=== PATIENT | male | born 1985 | race Two or more races ===

== ENCOUNTER 2017-03-09 14:01 | Emergency (ER) | payer MEDICAID ==
[2017-03-09 14:12] VITALS: BMI 18.1
[2017-03-09 14:16] VITALS: BP 102/68; RESP 18; TEMP 99.4; O2SAT 99
--- NOTE | 2017-03-09 14:24 | C.PDOC ---
History Of Present Illness 31 year old patient presents to the ED complaining of throat pain, fever, chills , and difficulty swallowing for the past 3 days. Patient denies cough, runny nose, ear pain, body aches, abdominal pain, N/V/D. Time Seen by Provider: 03/09/17 14:08 Chief Complaint (Nursing): ENT Problem History Per: Patient History/Exam Limitations: no limitations Onset/Duration Of Symptoms: Days (3) Current Symptoms Are (Timing): Still Present Quality Of Symptoms: Painful Severity: Mild Past Medical History Reviewed: Historical Data, Nursing Documentation, Vital Signs Vital Signs: Last Vital Signs Temp 99.4 F 03/09/17 14:13 Pulse 85 03/09/17 14:39 Resp 18 03/09/17 14:13 BP 102/68 03/09/17 14:13 Pulse Ox 99 03/09/17 16:05 - Medical History PMH: No Chronic Diseases Family History: States: No Known Family Hx - Social History Hx Tobacco Use: No Hx Alcohol Use: Yes Hx Substance Use: Yes - Immunization History Hx Tetanus Toxoid Vaccination: No Hx Influenza Vaccination: No Hx Pneumococcal Vaccination: No Review Of Systems Except As Marked, All Systems Reviewed And Found Negative. Constitutional: Positive for: Fever, Chills. Negative for: Other (body aches) ENT: Positive for: Throat Pain, Other (pain with swallowing). Negative for: Ear Pain, Nose Discharge Cardiovascular: Negative for: Chest Pain, Palpitations Respiratory: Negative for: Cough, Shortness of Breath Gastrointestinal: Negative for: Nausea, Vomiting, Abdominal Pain, Diarrhea Physical Exam - Physical Exam Appears: Well, Non-toxic, No Acute Distress Skin: Warm, Dry, No Rash Head: Normacephalic Eye(s): bilateral: Normal Inspection Ear(s): Bilateral: Normal Nose: Normal Oral Mucosa: Moist Throat: Erythema, Exudate, No Drooling, Other (tonsillar swelling, uvula midline and normal in appearance ) Neck: Normal, Normal ROM, Supple Lymphatic: No Adenopathy Chest: Symmetrical Cardiovascular: Rhythm Regular Respiratory: Normal Breath Sounds, No Rales, No Rhonchi, No Wheezing, Other ( speaking in complete sentences) Neurological/Psych: Oriented x3 ED Course And Treatment O2 Sat by Pulse Oximetry: 99 (room air) Pulse Ox Interpretation: Normal Progress Note: Patient given PO Amoxicillin and Naproxen in ED, as well as Rx for same. He was instructed to follow up with PMD/clinic in 1-2 days, and understands he should return to ED if symptoms worsen. Disposition Counseled Patient/Family Regarding: Diagnosis - Disposition Referrals: Dahiana Akbar MD [Primary Care Provider] - Disposition: HOME/ ROUTINE Disposition Time: 14:40 Condition: STABLE Additional Instructions: FOLLOW UP WITH YOUR DOCTOR IN 1-2 DAYS USE MEDICATIONS DIRECTED SALT WATER GARGLES MULTIPLE TIMES DAILY RETURN TO ER IF SYMPTOMS WORSEN Prescriptions: Amoxicillin [Amoxil 500 mg Cap] 500 mg PO BID #14 cap Naproxen [Naprosyn Tab] 375 mg PO BID PRN #15 tab PRN Reason: pain Instructions: Pharyngitis (ED) Print Language: MAURITIAN - Clinical Impression Clinical Impression: Pharyngitis - Scribe Statement The provider has reviewed the documentation as recorded by the Scribe Sepideh Maddox Provider Attestation: All medical record entries made by the Scribe were at my direction and personally dictated by me. I have reviewed the chart and agree that the record accurately reflects my personal performance of the history, physical exam, medical decision making, and the department course for this patient. I have also personally directed, reviewed, and agree with the discharge instructions and disposition.
[2017-03-09] MEDS ORDERED: Naproxen 550 mg Tab PO STA (14:29)
[2017-03-09] MEDS ORDERED: Naproxen 550 mg Tab PO ONE (14:32)
[2017-03-09 14:40] VITALS: PULSE 85
== END 2017-03-09 14:40 | disposition home or self-care (01) ==
LOC: C.ER 14:01 → SUPCPDRO 14:01 → C.ER 14:40
DX: J02.9 Acute pharyngitis, unspecified (principal)

== ENCOUNTER 2017-05-25 18:20 | Emergency (ER) | payer MEDICAID ==
[2017-05-25 18:20] VITALS: BMI 18.1
--- NOTE | 2017-05-25 19:43 | C.PDOC ---
History Of Present Illness 31 y/o male presents to the ED with complaints of left rib pain. Patient states he was boxing 2 days ago and got hit in the chest and has had pain since. Pain with deep breathing. No bruising, SOB, vomiting or any other complaints. Time Seen by Provider: 05/25/17 18:37 Chief Complaint (Nursing): Rib Injury History Per: Patient History/Exam Limitations: no limitations Onset/Duration Of Symptoms: Days Current Symptoms Are (Timing): Still Present Severity: Moderate Recent travel outside of the [place]: No Past Medical History Reviewed: Historical Data, Nursing Documentation, Vital Signs Vital Signs: Last Vital Signs Temp 98.3 F 05/25/17 18:27 Pulse 69 05/25/17 18:27 Resp 18 05/25/17 18:27 BP 115/76 05/25/17 18:27 Pulse Ox 99 05/25/17 20:16 - Medical History PMH: Asthma Surgical History: No Surg Hx Family History: States: Unknown Family Hx - Social History Hx Tobacco Use: No Hx Alcohol Use: Yes Hx Substance Use: Yes - Immunization History Hx Tetanus Toxoid Vaccination: No Hx Influenza Vaccination: No Hx Pneumococcal Vaccination: No Review Of Systems Cardiovascular: Negative for: Chest Pain Respiratory: Negative for: Shortness of Breath Gastrointestinal: Negative for: Vomiting Musculoskeletal: Positive for: Other (left rib pain) Physical Exam - Physical Exam Appears: Non-toxic, No Acute Distress Skin: Warm, Dry, No Rash Head: Atraumatic, Normacephalic Eye(s): bilateral: Normal Inspection Neck: Normal, Normal ROM, Supple Chest: Symmetrical, No Deformity, Tenderness (left anterior chest wall along 5th - 7th ribs), No Ecchymosis Cardiovascular: Rhythm Regular, No Murmur Respiratory: Normal Breath Sounds, No Rales, No Rhonchi, No Wheezing Gastrointestinal/Abdominal: Normal Exam, Soft, No Tenderness Extremity: Bilateral: Atraumatic, Normal ROM Neurological/Psych: Oriented x3, Normal Speech Gait: Steady ED Course And Treatment O2 Sat by Pulse Oximetry: 99 (room air) Pulse Ox Interpretation: Normal Medical Decision Making Medical Decision Making: Impression: Rib injury Plan :CXR and ribs CXR negative for fracture of rib and normal chest. Patient remained well in no distress. Advise analgesics as needed Disposition Counseled Patient/Family Regarding: Diagnosis, Need For Followup - Disposition Disposition: HOME/ ROUTINE Disposition Time: :27 Condition: STABLE Additional Instructions: Your xray is normal, no fracture. Take Motrin or other anti-inflammatory medication, with food to not upset stomach. Follow up with your doctor if pain persists over one week. 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 - Scribe Statement The provider has reviewed the documentation as recorded by the Scriberyn Powers All medical record entries made by the Johnna were at my direction and personally dictated by me. I have reviewed the chart and agree that the record accurately reflects my personal performance of the history, physical exam, medical decision making, and the department course for this patient. I have also personally directed, reviewed, and agree with the discharge instructions and disposition.
--- NOTE | 2017-05-26 08:51 | RAD ---
PROCEDURE: Radiographs of the Chest and Left Ribs. HISTORY: pain s.p injury COMPARISON: None available. TECHNIQUE: Frontal radiograph of the chest and multiple oblique radiographs of the left ribs were obtained. FINDINGS: LEFT RIBS: No fracture or focal lesion visualized. LUNGS: Clear. PLEURA: No pneumothorax or pleural fluid. CARDIOVASCULAR: Normal sized heart. No pulmonary vascular congestion. OTHER FINDINGS: None. IMPRESSION: No evidence of acute displaced left rib fracture left pleural effusion or pneumothorax.
[2017-05-26 12:02] VITALS: BP 115/76; PULSE 69; RESP 18; TEMP 98.3; O2SAT 99
== END 2017-05-25 19:30 | disposition home or self-care (01) ==
LOC: C.ER 18:20
DX: S20.212A Contusion of left front wall of thorax, initial encounter (principal); W50.0XXA Accidental hit or strike by another person, initial encounter; Y93.71 Activity, boxing